=== PATIENT | female | born 1955 | race Caucasian/White ===

== ENCOUNTER → 2016-03-28 09:33 | Outpatient (CLI) | payer MEDICARE, BC ==
[2009-08-09 10:13] VITALS: BMI 23.5
== END | disposition home or self-care (01) ==
LOC: D.CT 09:33
DX: R31.9 Hematuria, unspecified (principal)

== ENCOUNTER → 2017-02-03 10:33 | Outpatient (CLI) | payer MEDICARE, BC ==
[2009-08-09 10:13] VITALS: BMI 23.5
== END | disposition home or self-care (01) ==
LOC: D.RAD 10:33
DX: K21.9 Gastro-esophageal reflux disease without esophagitis (principal)